=== PATIENT | male | born 1960 | race Caucasian/White ===

== ENCOUNTER → 2016-12-17 | Outpatient (CLI) | payer BC ==
[2016-12-17 08:12] LABS: ALT 58 U/L (21-72); AST 44 U/L (17-59); Alkaline Phosphatase 50 U/L (38-126); Anion Gap 8 mmol/L; Blood Urea Nitrogen 15 mg/dL (9-20); Calcium 10.1 mg/dL (8.4-10.2); Carbon Dioxide 26 mmol/L (22-30); Chloride 107 mmol/L (98-107); Cholesterol 163 mg/dL (<200); Glucose 97 mg/dL (74-99); HDL Cholesterol 56 mg/dL (40-60); Non-African American GFR(MDRD) >60 (>60 ml/min/1.73 sqM); Potassium 4.2 mmol/L (3.5-5.1); Sodium 141 mmol/L (137-145); Total Bilirubin 0.7 mg/dL (0.2-1.3); Triglycerides 87 mg/dL (<150)
[2016-12-17 08:18] LABS: Basophils % (A) 1 %; CH 31.3; CHCM 34.5; Eosinophils # (A) 0.2 k/uL (0-0.7); Eosinophils % (A) 5 %; HCT 48.1 % (39.0-53.0); HDW 2.64; Luc # (Auto) 0.08; Luc % (Auto) 2; Lymphocytes # (A) 1.1 k/uL (1.0-4.8); Lymphocytes % (A) 27 %; MCH 30.3 pg (25.0-35.0); MCHC 33.2 g/dL (31.0-37.0); MCV 91.3 fL (80.0-100.0); Monocytes # (A) 0.3 k/uL (0-1.0); Monocytes % (A) 7 %; Neutrophils # (A) 2.4 k/uL (1.3-7.7); Neutrophils % (A) 58 %; RBC 5.28 m/uL (4.30-5.90); RDW 14.3 % (11.5-15.5); WBC 4.1 k/uL (3.8-10.6); WBC (Perox) 3.99
[2016-12-17 08:53] LABS: Hepatitis C Virus IgG Ab Negative (Negative); Hepatitis C Virus IgG Index 0.03
[2016-12-17 10:43] LABS: Prostate Specific Antigen 2.09 ng/mL (0.00-4.00)
== END | disposition home or self-care (01) ==
LOC: LABWHC1 07:09
PROVIDERS: ATTEND Family Medicine
DX: Z00.00 Encounter for general adult medical examination without abnormal findings (principal); Z11.59 Encounter for screening for other viral diseases
CPT/HCPCS: 36415; 80053; 80061; 84153; 85025; 86803

== ENCOUNTER → 2018-06-23 | Outpatient (CLI) | payer BC ==
[2018-06-23 07:29] LABS: Basophils # (A) 0.1 k/uL (0-0.2); Basophils % (A) 1 %; Eosinophils # (A) 0.2 k/uL (0-0.7); Eosinophils % (A) 4 %; HCT 46.8 % (39.0-53.0); HGB 15.2 gm/dL (13.0-17.5); Lymphocytes # (A) 1.2 k/uL (1.0-4.8); Lymphocytes % (A) 31 %; MCH 29.7 pg (25.0-35.0); MCHC 32.6 g/dL (31.0-37.0); MCV 91.2 fL (80.0-100.0); Mean Platelet Volume 7.1; Monocytes # (A) 0.3 k/uL (0-1.0); Monocytes % (A) 8 %; Neutrophils # (A) 2.1 k/uL (1.3-7.7); Neutrophils % (A) 54 %; Platelet Count 177 k/uL (150-450); RBC 5.13 m/uL (4.30-5.90); RDW 13.4 % (11.5-15.5); WBC 3.9 k/uL (3.8-10.6)
[2018-06-23 11:21] LABS: Albumin 4.4 g/dL (3.80-4.90); Albumin/Globulin Ratio 1.91 (1.60-3.17); Anion Gap 6.2 mmol/L (4.00-12.00); Calcium 10.2 mg/dL (8.7-10.3); Carbon Dioxide 27.8 mmol/L (21.6-31.8); Globulin 2.3 g/dL (1.6-3.3); LDL Cholesterol,Calculated 104.6 mg/dL (0.0-131.0); Potassium 4.4 mmol/L (3.5-5.5); Total Bilirubin 0.4 mg/dL (0.3-1.2); Total Protein 6.7 g/dL (6.2-8.2); VLDL Calculation 14.4 mg/dL (5.00-40.00)
[2018-06-26 18:08] LABS: Estrogens Total 161 pg/mL
== END ==
LOC: LABWHC1 07:03
PROVIDERS: ATTEND Family Medicine
DX: Z00.00 Encounter for general adult medical examination without abnormal findings (principal); R53.83 Other fatigue; Z12.5 Encounter for screening for malignant neoplasm of prostate
CPT/HCPCS: 36415; 80053; 80061; 82040; 82672; 84153; 84270; 84403; 84443; 85025

== ENCOUNTER 2018-07-28 07:58 | Day surgery (SDC) | payer BC ==
[2018-07-26 15:14] VITALS: BMI 31.6
[~2018-07-28 07:58] MED LIST: LACTATED RINGERS 1,000 ML IV SCH
[2018-07-28 08:45] VITALS: RESP 16; TEMP 97
[2018-07-28] MEDS ORDERED: PROPOFOL 10 MG/ML 20 ML VIAL IV ONE (08:51)
--- NOTE | 2018-07-28 09:09 | P.PCN ---
Date of Procedure: 07/28/18 Procedure(s) Performed: BRIEF HISTORY: Patient is a 57-year-old pleasant white male, scheduled for an elective colonoscopy as a part of variation of prior history of colon polyps. Last colonoscopy was 6 years ago and was noted to have polyps. PROCEDURE PERFORMED: Colonoscopy with biopsy. PREOPERATIVE DIAGNOSIS: History of colon polyps. IV sedation per Anesthesia. PROCEDURE: After informed consent was obtained, the patient, was brought into the endoscopy unit. IV sedation was administered by Anesthesia under continuous monitoring. Digital rectal examination was normal. Initially the Olympus CF-160 flexible video colonoscope was then inserted in the rectum, gradually advanced into the cecum without any difficulty. Careful examination was performed as the scope was gradually being withdrawn. Ileocecal valve and the appendiceal orifice were visualized and appeared normal. Prep was excellent. Mucosa of the cecum, appeared normal. On the ileocecal valve there was a 3 mm sessile polyp that was removed by cold biopsy. Rest of the ascending colon, transverse colon, descending colon, sigmoid colon, and rectum appeared normal. Retroflexion was performed in the rectum and no lesions were seen. Scattered sigmoid diverticulosis seen. The patient tolerated the procedure well. IMPRESSION: 2-3 mm polyp on the ileocecal valve status post removal by cold biopsy Scattered sigmoid diverticulosis RECOMMENDATIONS: Findings of this examination were discussed with the patient as well as his family. He was advised to follow with the biopsy results and can have a repeat surveillance colonoscopy in 5 years from now.
[2018-07-28 09:34] VITALS: BP 109/69; PULSE 58
== END 2018-07-28 09:53 | disposition home or self-care (01) ==
LOC: ORWHC2ENDO 07:58
PROVIDERS: ATTEND Internal Medicine Gastroenterology
DX: K63.5 Polyp of colon (principal); K57.30 Diverticulosis of large intestine without perforation or abscess without bleeding; Z79.899 Other long term (current) drug therapy; K21.9 Gastro-esophageal reflux disease without esophagitis
CPT/HCPCS: 88305; 45380; J2704

== ENCOUNTER → 2020-06-27 | Outpatient (CLI) | payer BC ==
[2020-06-27 10:07] LABS: Basophils # (A) 0.04 X 10*3/uL (0.00-0.10); Basophils % (A) 1.1 %; Eosinophils # (A) 0.13 X 10*3/uL (0.04-0.35); Eosinophils % (A) 3.5 %; HGB 15.3 g/dL (13.0-17.0); Lymphocytes # (A) 0.92 X 10*3/uL (0.90-5.00); Lymphocytes % (A) 24.9 %; MCH 30.4 pg (27.0-32.0); MCV 89.5 fL (80.0-97.0); Monocytes # (A) 0.37 X 10*3/uL (0.20-1.00); Neutrophils # (A) 2.22 X 10*3/uL (1.80-7.70); Neutrophils % (A) 60.2 %; Platelet Count 182 X 10*3/uL (140-440); RBC 5.03 X 10*6/uL (4.40-5.60); RDW 12.6 % (11.5-14.5); WBC 3.69 X 10*3/uL (4.50-10.00)
[2020-06-27 10:45] LABS: African American GFR (CKD) 94.4 (60.0-200.0); Albumin 4.8 g/dL (3.80-4.90); Albumin/Globulin Ratio 2.4 (1.60-3.17); Anion Gap 8.7 mmol/L (4.00-12.00); Calcium 10.2 mg/dL (8.7-10.3); Carbon Dioxide 26.3 mmol/L (21.6-31.8); Chol/HDL Ratio 3.16; LDL Cholesterol,Calculated 90.6 mg/dL (0.0-131.0); Non-African American GFR(CKD) 81.4 (60.0-200.0); Total Bilirubin 0.9 mg/dL (0.3-1.2); Total Protein 6.8 g/dL (6.2-8.2); VLDL Calculation 30.4 mg/dL (5.00-40.00)
[2020-06-27 10:53] LABS: PSA Annual Screen 2.9 ng/mL (0.0-4.0)
== END | disposition home or self-care (01) ==
LOC: LABWHC1 07:00
PROVIDERS: ATTEND Family Medicine
DX: Z00.00 Encounter for general adult medical examination without abnormal findings (principal)
CPT/HCPCS: 80061; 80053; 82672; 84443; 85025; 84270; 82040; 84403; 36415; G0103

== ENCOUNTER → 2020-07-22 | Outpatient (CLI) | payer BC ==
--- NOTE | 2020-07-22 17:19 | US ---
EXAMINATION TYPE: US liver DATE OF EXAM: 07/22/2020 COMPARISON: NONE CLINICAL HISTORY: R74.01 elevated liver enzymes. elevated liver enzymes EXAM MEASUREMENTS: Liver Length: 15.1 cm Gallbladder Wall: 0.3 cm Right Kidney: 11.6 x 5.7 x 5.1 cm Technical limitations due to large amount of overlying bowel content Pancreas: Obscured by bowel gas Liver: limited evaluation, appears wnl Gallbladder: no evidence of stones as visualized Evidence for sonographic Rushing's sign: no CBD: Obscured by overlying bowel gas Right Kidney: no evidence of hydronephrosis IMPRESSION: 1. Normal right upper quadrant ultrasound as visualized.
== END | disposition home or self-care (01) ==
LOC: RADUSWWP 07:00
PROVIDERS: ATTEND Family Medicine
DX: R74.01 Elevation of levels of liver transaminase levels (principal)
CPT/HCPCS: 76705

== ENCOUNTER → 2021-03-27 | Outpatient (CLI) | payer BC ==
--- NOTE | 2021-03-27 15:55 | US ---
EXAMINATION TYPE: US kidneys/renal and bladder DATE OF EXAM: 03/27/2021 COMPARISON: US 10/14/2011 CLINICAL HISTORY: N28.1 Renal cyst. Followup left renal cyst EXAM MEASUREMENTS: Right Kidney: 10.5 x 6.8 x 6.2 cm Left Kidney: 11.6 x 10.1 x 5.9 cm Post Void Residual Volume: 22.4 mL Right Kidney: No hydronephrosis or masses seen Left Kidney: left renal cyst seen mid lateral cortex = 6.4 x 6.0 x 6.1cm . This appears simple but e nlarged over the interval right Bladder: wnl Bilateral Jets seen: yes Normal Post Void Residual: yes IMPRESSION: Simple left enlarging renal cyst
== END | disposition home or self-care (01) ==
LOC: RADUSWWP 14:55
PROVIDERS: ATTEND Urology
DX: N28.1 Cyst of kidney, acquired (principal)
CPT/HCPCS: 76770

== ENCOUNTER → 2022-04-30 | Outpatient (CLI) | payer BC ==
[2022-04-30 10:51] LABS: Basophils # (A) 0.06 X 10*3/uL (0.00-0.10); Basophils % (A) 1.3 %; Eosinophils # (A) 0.21 X 10*3/uL (0.04-0.35); Eosinophils % (A) 4.6 %; HCT 47.9 % (39.6-50.0); HGB 16.1 g/dL (13.0-17.0); Immature Grans, Automated 0.2 %; Lymphocytes % (A) 23.9 %; MCH 31.3 pg (27.0-32.0); MCHC 33.6 g/dL (32.0-37.0); Mean Platelet Volume 10.1 fL (9.5-12.2); Monocytes # (A) 0.46 X 10*3/uL (0.20-1.00); NRBC Per 100 WBC 0 /100 WBCS (0.0-0.0); Neutrophils # (A) 2.77 X 10*3/uL (1.80-7.70); Platelet Count 196 X 10*3/uL (140-440); RBC 5.15 X 10*6/uL (4.40-5.60); RDW 12.5 % (11.5-14.5); WBC 4.61 X 10*3/uL (4.50-10.00)
[2022-04-30 11:06] LABS: ALT 38 U/L (10-49); AST 26 U/L (14-35); African American GFR (CKD) 82.9 (60.0-200.0); Albumin 4.6 g/dL (3.8-4.9); Albumin/Globulin Ratio 1.92 (1.60-3.17); Alkaline Phosphatase 52 U/L (41-126); BUN/Creat Ratio 15.09 Ratio (12.00-20.00); Blood Urea Nitrogen 16.6 mg/dL (9.0-27.0); Calcium 10.4 mg/dL (8.7-10.3); Carbon Dioxide 26.3 mmol/L (20.0-27.5); Chloride 105 mmol/L (96-109); Chol/HDL Ratio 2.72 Ratio; Globulin 2.4 g/dL (1.6-3.3); Glucose 110 mg/dL (70-110); LDL Cholesterol,Calculated 96.6 mg/dL (0.0-131.0); Non-African American GFR(CKD) 71.6 (60.0-200.0); Sodium 139 mmol/L (135-145); VLDL Calculation 13.46 mg/dL (5.00-40.00)
== END | disposition home or self-care (01) ==
LOC: LABWHC1 06:59
PROVIDERS: ATTEND Family Medicine
DX: Z00.00 Encounter for general adult medical examination without abnormal findings (principal)
CPT/HCPCS: 36415; 80053; 80061; 83036; 84443; 85025

== ENCOUNTER → 2023-06-15 | Outpatient (CLI) | payer BC ==
--- NOTE | 2023-06-15 16:57 | US ---
EXAMINATION TYPE: US kidneys/renal and bladder DATE OF EXAM: 06/15/2023 COMPARISON: 03/27/2021 CLINICAL INDICATION: Male, 62 years old with history of N28.1 CYST OF KIDNEY, ACQUIRED; Patient stat es that he has a known left renal cyst. EXAM MEASUREMENTS: Right Kidney: 10.2 x 6.1 x 5.3 cm Left Kidney: 11.3 x 6.7 x 5.3 cm Limited visualization due to bowel gas and patient body habitus Right Kidney: No hydronephrosis or masses seen Left Kidney: There is a 6.4 x 5.5 x 5.7cm anechoic lesion seen in mid left kidney. Previously measure d 6.4 x 6.1 x 6.0 Bladder: wnl Bilateral Jets seen: Yes There is no evidence for hydronephrosis at this point in time. No nephrolithiasis is seen. No marylou s are identified. The urinary bladder is anechoic. Bilateral ureteral jets are seen. IMPRESSION: 1. No evidence for obstructive uropathy. 2. Left renal cyst measuring up to 6.4 cm. This is a simple appearance. No follow-up recommended.
== END | disposition home or self-care (01) ==
LOC: RADUSWWP 16:04
PROVIDERS: ATTEND Family Medicine
DX: N28.1 Cyst of kidney, acquired (principal)
CPT/HCPCS: 76770

== ENCOUNTER → 2023-09-16 | Day surgery (SDC) | payer BC ==
[2023-09-14 15:29] VITALS: BMI 32.4
[~2023-09-16] MED LIST changes: +ACETAMINOPHEN TAB 325 MG TAB PO PRN; +ACETAMINOPHEN TAB 500 MG TAB PO PRN; +DEXAMETHASONE SOD PHOSPHATE 4 MG/ML 1 ML VIAL IV ONE; +HEPARIN SODIUM,PORCINE 5,000 UNIT/ML 1 ML VIAL SQ PRN; +HYDROmorphone (PF) 1 MG/ML ONE; +HYDROmorphone 0.5 MG/0.5 ML SYRINGE IVP PRN; +KETOROLAC 15 MG/ML 1 ML VIAL IVP SCH; +KETOROLAC 15 MG/ML 1 ML VIAL ONE; +LIDOCAINE 1% (10MG/ML) FOR IV START INTRADERMA PRN; +LIDOCAINE 1% INJ 10MG/ML (20 ML MDV) ONE; +MIDAZOLAM 2 MG/2 ML VIAL IV PRN; +MIDAZOLAM 2 MG/2 ML VIAL ONE; +NALOXONE 0.4 MG/ML 1 ML VIAL IV PRN; +ONDANSETRON 4 MG/2 ML VIAL IVP ONE; +PROPOFOL 10 MG/ML 20 ML VIAL IV ONE; +Pre Op ABX Message 1 EACH MISC MISCELLANE ONE; +ceFAZolin 1 GM/50 ML BAG (PMX) ONE; +fentaNYL (PF) 50 MCG/ML 2 ML AMP ONE
[2023-09-16] MEDS: LACTATED RINGERS 1,000 ML IV ONE (06:40)
[2023-09-16] MEDS: ACETAMINOPHEN TAB 500 MG TAB PO ONE (06:59)
[2023-09-16] MEDS: HEPARIN SODIUM,PORCINE 5,000 UNIT/ML 1 ML VIAL SQ ONE (07:00)
[2023-09-16] MEDS: ONDANSETRON 4 MG/2 ML VIAL IVP ONE (07:00)
[2023-09-16] MEDS: DEXAMETHASONE SOD PHOSPHATE 4 MG/ML 1 ML VIAL IVP ONE (07:01)
[2023-09-16] MEDS: BUPIVACAINE (PF) 0.25% 30 ML VIAL SQ ONE ×2 (07:45→08:45)
[2023-09-16] MEDS: SODIUM CHLORIDE 0.9% 50 ML with ceFAZolin 1,000 MG IV ONE (08:16)
--- NOTE | 2023-09-16 09:02 | P.OP ---
Date of Procedure: 09/16/23 Procedure(s) Performed: PREOPERATIVE DIAGNOSIS: Multiple abdominal wall lipomas POSTOPERATIVE DIAGNOSIS: Same PROCEDURE: Excision 9 separate abdominal wall lipomas with intermediate closure SURGEON: Teri EBL: 20 cc ANESTHESIA: General COMPLICATIONS: None OPERATIVE PROCEDURE: Patient placed on the operating table in the supine position. Abdomen was prepped and draped sterilely. The patient had a total of 9 separate lipomas that he and I marked out both on his abdominal wall with skin marker and also on a piece of paper with a anatomical drawing. 4 were on the right side of the abdomen fiber on the left. All sites were localized with Marcaine. Horizontal incision was made overlying each palpable mass. On the left-hand side 2 of the masses were in proximity and I was able to make a single incision to remove 2 lipomas there. For that reason we have a total of 8 separate incisions. All lipomatous tissue was excised and sent to pathology. 2 of the lipomas were larger measuring 4.5 cm, 6 of the lipomas were approximately 3.5 cm, 3 of the lipomas measured 2.5 cm. All were sent to pathology together. At each incision site the subcutaneous tissues were closed using interrupted 3-0 Vicryl sutures. The skin was then closed at all 8 incisions with a running 4-0 Monocryl subcuticular stitch. Length of intermediate closure 24 cm. Skin glue applied at all sites. DISPOSITION: Stable to recovery room
[2023-09-16 09:39] VITALS: TEMP 96.9
[2023-09-16 11:12] VITALS: BP 129/87; PULSE 77; RESP 14
== END ==
LOC: OR 06:19
PROVIDERS: ATTEND Surgery
DX: D17.1 Benign lipomatous neoplasm of skin and subcutaneous tissue of trunk (principal); K65.4 Sclerosing mesenteritis; K21.9 Gastro-esophageal reflux disease without esophagitis; Z79.899 Other long term (current) drug therapy; Z98.890 Other specified postprocedural states
CPT/HCPCS: 88304; 22903; J2250; J1644; J1100; J2405; J0690 ×2; J2001; J3010; J1170; J1885; J2704; J0665